=== PATIENT | male | born 1995 | race Caucasian/White ===

== ENCOUNTER 2019-01-30 21:14 | Emergency (ER) | payer OTHER ==
[~2019-01-30] VITALS: Ht 177.8 cm; Wt 63.5 kg
[2019-01-30] MEDS ORDERED: ERYTHROMYCIN250 M1 PO (21:44)
[2019-01-30 22:45] VITALS: BP 112/74
== END 2019-01-30 22:45 | disposition home or self-care (01) ==
LOC: ER 21:14
DX: S00.12XA Contusion of left eyelid and periocular area, initial encounter (principal); Y04.0XXA Assault by unarmed brawl or fight, initial encounter; Y93.89 Activity, other specified; Y92.89 Other specified places as the place of occurrence of the external cause; Y99.8 Other external cause status